=== PATIENT | female | born 1960 | race American Indian/Alaskan Native ===

== ENCOUNTER 2017-06-20 14:06 | Outpatient (CLI) | payer OTHER ==
--- NOTE | 2017-06-20 15:31 | Mammography Report ---
RIGHT DIGITAL DIAGNOSTIC MAMMOGRAM : 06/20/17 14:06:00 CLINICAL: Recall for asymmetries. COMPARISON:05/17/17 screening FINDINGS: ML and spot magnification MLO and CC views were performed and are negative. IMPRESSION: No mammographic evidence of malignancy. BI-RADS CATEGORY: 1 -- Negative RECOMMENDATION: Routine mammographic screening in one year. ACR BI-RADS MAMMOGRAPHIC CODES: 0 = Needs additional imaging evaluation; 1 = Negative; 2 = Benign; 3 = Probably benign; 4 = Suspicious; 5 = Malignant; 6 = Known biopsy-proven malignancy COMMENT: 1. Dense breast tissue, i.e., adenosis, fibrocystic changes, etc., may obscure an underlying neoplasm. 2. Approximately 10% of cancers are not detected with mammography. 3. A negative mammography report should not delay biopsy if a clinically suspicious mass is present. COMMENT: Patient follow-up letters are generated via our [employer] application.
== END 2017-06-20 14:07 | disposition home or self-care (01) ==
LOC: SPVWC 14:06
PROVIDERS: ATTEND Specialist
DX: R92.2 Inconclusive mammogram (principal)
CPT/HCPCS: G0206-RT

== ENCOUNTER 2017-09-11 06:21 | Observation (INO) | payer OTHER ==
--- NOTE | 2017-09-09 13:22 | Anesthesia Consultation ---
Anesthesia Consult and Med Hx Date of service: 09/09/17 - Airway Anesthetic Teeth Evaluation: Partials ROM Head & Neck: Adequate Mental/Hyoid Distance: Adequate Mallampati Class: Class I Intubation Access Assessment: Probably Good - Pulmonary Exam CTA: Yes - Cardiac Exam Cardiac Exam: RRR - Pre-Operative Health Status ASA Pre-Surgery Classification: ASA3 Proposed Anesthetic Plan: General - Pulmonary Hx Smoking: Yes (former) - Cardiovascular System Hx Hypertension: Yes (since age 48, may choose to hold the HCTZ) - Central Nervous System Hx Psychiatric Problems: No - Other Systems Hx Alcohol Use: Yes (occas) Hx Cancer: No - Additional Comments Anesthesia Medical History Comments: Discussed the possibility of TAP block for post anesthesia pain control
[2017-09-09 13:24] LABS: Basophils # (Auto) 0.1 K/mm3 (0.0-0.1); Basophils % (Auto) 1.2 % (0.0-1.8); Eosinophils # (Auto) 0.2 K/mm3 (0.0-0.4); Hematocrit 38.7 % (30.3-42.9); Hemoglobin 12.5 gm/dl (10.1-14.3); Lymphocytes # (Auto) 2.1 K/mm3 (1.2-5.4); Lymphocytes % (Auto) 39.5 % (13.4-35.0); Mean Corpuscular HGB Conc 32 % (30-34); Mean Corpuscular Hemoglobin 26 pg (28-32); Mean Corpuscular Volume 81 fl (79-97); Monocytes # (Auto) 0.5 K/mm3 (0.0-0.8); Monocytes % (Auto) 10.1 % (0.0-7.3); Platelet Count 216 K/mm3 (140-440); Red Blood Count 4.77 M/mm3 (3.65-5.03); Red Cell Distribution Width 14.8 % (13.2-15.2)
[2017-09-09 13:44] LABS: BUN/Creatinine Ratio 30; Blood Urea Nitrogen 18 mg/dL (7-17); Calcium 9.2 mg/dL (8.4-10.2); Hemolysis Index 10
[~2017-09-11 06:21] MED LIST: NACL 0.9% 1000 ML 1,000 ML IV SCH
[2017-09-11] MEDS ORDERED: NACL BACTERIOSTATIC INFILTRATI ONE (06:57)
[2017-09-11] MEDS ORDERED: GELFOAM POWDER 1GM MM ONE ×2 (07:30→08:35)
[2017-09-11] MEDS ORDERED: NEOSPORIN GU IR ONE ×2 (07:31→08:35)
[2017-09-11] MEDS ORDERED: THROMBIN (BOVINE) TP ONE ×2 (07:31→08:35)
[2017-09-11] MEDS ORDERED: SUBLIMAZE IV ONE (07:36)
[2017-09-11] MEDS ORDERED: ZEMURON IV ONE (07:37)
[2017-09-11] MEDS ORDERED: DILAUDID ONE (07:37)
[2017-09-11] MEDS ORDERED: XYLOCAINE MPF 2% ONE (07:37)
[2017-09-11] MEDS ORDERED: DIPRIVAN 10 MG/ML IV ONE (07:37)
--- NOTE | 2017-09-11 07:39 | Anesthesia Day of Surgery ---
Anesthesia Day of Surgery - Day of Surgery Patient Examined: Yes Patient H&P Reviewed: Yes Patient is NPO: Yes
[2017-09-11] MEDS ORDERED: MARCAINE 0.5% 60 ML INFILTRATI ONE (07:40)
--- NOTE | 2017-09-11 07:48 | History and Physical Report ---
History of Present Illness Date of examination: 09/11/17 Date of admission: 09/11/2017 Chief complaint: pelvic pressure History of present illness: 57y/o with uterovaginal prolapse. She complains of pelvic pressure and discomfort. She has not experienced urinary incontinence. Pelvic ultrasound was performed with findings of a thickened endometrium. Endometrial biospy was benign. She has elected for definitive surgical management. Past History Past Medical History: hypertension Past Surgical History: other (aspiration of breast cyst) Social history: single - Obstetrical History : 2 Para: 2 Hx # Term Pregnancies: 2 Number of Pregnancies: 0 Spontaneous Abortions: 0 Induced : 0 Number of Living Children: 2 Medications and Allergies Allergies Allergy/AdvReac Type Severity Reaction Status Date / Time peach Allergy Anaphylaxis Verified 09/06/17 16:57 seafood Allergy Unknown Uncoded 09/06/17 16:57 Home Medications Medication Instructions Recorded Confirmed Last Taken Type Aspirin [Lo-Dose Aspirin EC] 81 mg PO DAILY 09/06/17 09/06/17 09/04/17 History Hydrochlorothiazide [HCTZ] 25 mg PO QDAY 09/06/17 09/11/17 09/10/17 History Active Meds: Active Medications Fentanyl (Sublimaze) 100 mcg IV ONCE ONE Stop: 09/11/17 07:37 Hydromorphone HCl (Dilaudid) 0.5 mg IV Q10MIN PRN PRN Reason: Pain , Severe (7-10) Sodium Chloride (Nacl 0.9% 1000 Ml) 1,000 mls @ 42 mls/hr IV DIRECT FATIMAH Meperidine HCl (Demerol) 25 mg IV ONCE PRN PRN Reason: Shivering Midazolam HCl (Versed) 2 mg IV PREOP NR Stop: 09/11/17 23:59 Naloxone HCl (Narcan 0.4 Mg/1 Ml) 0.1 mg IV Q2MIN PRN PRN Reason: Res Rate </= 8 or 02 SAT < 92% Ondansetron HCl (Zofran) 4 mg IV ONCE PRN PRN Reason: Nausea And Vomiting Review of Systems All systems: negative Genitourinary: pelvic pain - Vital Signs Vital signs: Vital Signs Temp Pulse Resp BP 98.2 F 68 18 136/90 09/09/17 12:35 09/09/17 12:35 09/09/17 12:35 09/09/17 12:35 Temp Pulse Resp BP Pulse Ox 98.2 F 68 18 136/90 09/09/17 12:35 09/09/17 12:35 09/09/17 12:35 09/09/17 12:35 - Physical Exam Breasts: Positive: deferred Cardiovascular: Regular rate Lungs: Positive: Clear to auscultation Abdomen: Positive: normal appearance Results Result Diagrams: 09/09/17 12:45 09/09/17 12:45 All other labs normal. Assessment and Plan - Patient Problems (1) Uterovaginal prolapse Current Visit: Yes Status: Acute Plan to address problem: proceed with a robotic hysterectomy/BSO and anterior repair (2) Endometrial thickening on ultra sound Current Visit: Yes Status: Acute
[2017-09-11] MEDS ORDERED: ANCEF/STERILE WATER 2 GM/20 ML IV NR (08:00)
[2017-09-11] MEDS ORDERED: VERSED IV NR (08:00)
[2017-09-11] MEDS ORDERED: DEMEROL IV PRN (08:00)
[2017-09-11] MEDS ORDERED: ZOFRAN IV PRN (08:00)
[2017-09-11] MEDS ORDERED: SUBLIMAZE IV NR (08:00)
[2017-09-11] MEDS ORDERED: NARCAN 0.4 MG/1 ML IV PRN ×2 (08:00→10:27)
[2017-09-11] MEDS ORDERED: NACL 0.9% IR ONE ×2 (08:35)
[2017-09-11] MEDS ORDERED: APRESOLINE ONE (09:24)
[2017-09-11] MEDS ORDERED: ZOFRAN ONE (09:24)
[2017-09-11] MEDS ORDERED: XYLOCAINE 1%/ EPI 1:100,000 INFILTRATI ONE (09:32)
[2017-09-11] MEDS ORDERED: NEOSTIGMINE ONE (09:42)
[2017-09-11] MEDS ORDERED: ROBINUL ONE (09:42)
[2017-09-11] MEDS ORDERED: XYLOCAINE/EPI 1% 1:50,000 (OR) INFILTRATI ONE (09:48)
--- NOTE | 2017-09-11 10:27 | Operative Report ---
Operative Report Operative Report: Date of surgery: 09/11/2017 Preoperative diagnoses: Uterovaginal prolapse; pelvic pain Postoperative diagnoses: Same as above Procedure: Robotic hysterectomy and bilateral salpingo-oophorectomy; lysis of adhesions; anterior repair Surgeon: Merissa Strange M.D. Warehouse Clerk: Adrianne Claudio Anesthesia: Gen. endotracheal anesthesia Estimated blood loss: 75 mL Pathology: Uterus, cervix, bilateral tubes and ovaries, vaginal mucosa Indication: 57-year-old 002 with a history of uterovaginal prolapse. The patient denied any history of urinary incontinence. She also reported a complaint of pelvic pressure and pain. Procedure: The patient was taken to the operating room and given general endotracheal anesthesia without complication. She is prepped and draped in a normal sterile fashion. A bivalve speculum was placed in the patient's vagina and a single- tooth tenaculum placed on the anterior lip of the cervix. The uterus was sounded with the uterine sound. A [employer] uterine manipulator was placed in the bivalve speculum was then removed. Attention was then turned to the patient's abdomen where a 12 millimeter supra umbilical skin incision was then made. A Veress needle was placed and peritoneal entry was verified water-filled syringe. Insufflation of the peritoneal cavity was performed with CO2 gas. The 12 mm trocar was then placed under direct visualization. An additional 8 mm trocar was placed on the patient's left and right lateral side just opposite of the supraumbilical trocar. An additional 5 mm right lateral trocar was then placed as the accessory port. The Robel Roper device was used to close the fascia of the 12 mm incision. General survey of the patient's abdomen and pelvis revealed evidence of multiple omental adhesions to the anterior abdominal wall. The monopolar scissors had to be used in order to lyse the adhesions to improve visualization. The uterus was normal in size with normal tubes and ovaries bilaterally The patient was then placed in steep Trendelenburg. The da Dell robot was then engaged. A fenestrated forcep was placed in arm 2 and a vessel sealer was placed in arm 1. The surgeon then transferred to the surgical console. The infundibulopelvic ligament was then isolated on the right. The vessel sealer was used to coagulate the ligament which was then transected. The tube and ovary were transected from the supply. The round ligament was then coagulated and transected also. The vesicouterine peritoneum was then entered from the patient's right side. The uterine vessels were then coagulated with the vessel sealer. The vessels were then transected . Attention was then turned to the patient's left side where the infundibulopelvic ligament and mesosalpinx were again isolated coagulated and transected. The vesical peritoneum was then entered from the left and joined in the midline. Peritoneum was reflected off of the lower uterine segment. Uterine vessels were then coagulated and then transected. The blood supply to the uterus was adequately contained, a posterior colpotomy was made. The V care ring was visualized. Posterior colpotomy was created with the monopolar scissors. The incision was continued circumferentially until anterior colpotomy was made. The cervix and uterus were amputated from the vaginal cuff. The uterus was then removed along with the tubes and ovaries bilaterally through the vagina and a warm laparotomy sponge was placed and maintain the pneumoperitoneum. The surgeon left the surgical console and went to the foot of the bed. The vaginal mucosa was injected with lidocaine with epinephrine. A weighted speculum was placed in the vagina. The vaginal mucosa was grasped with Allis clamps. A vertical incision was made on the anterior portion of the vaginal mucosa incising the tissue. With sharp dissection and the bladder was reflected off of the vaginal mucosa. Plication sutures were placed in order to decompress the cystocele. The excess vaginal mucosa was removed with the scalpel. The vaginal mucosal was reapproximated in a running lock fashion. The vaginal cuff was then closed in a linear fashion with 0 Vicryl in a running fashion. Irrigation of the pelvis was performed. Gelfoam with thrombin was applied to the incision. The skin was then reapproximated with 4-0 Monocryl. The tissue was sent to pathology which included the cervix, uterus, tubes and ovaries. The patient was then successfully extubated. She was then taken to the recovery room in stable condition. All sponge laps and needle counts were correct x2.
[2017-09-11] MEDS ORDERED: MILK OF MAGNESIA PO PRN (10:28)
[2017-09-11] MEDS ORDERED: PERCOCET 5/325 PO PRN (10:28)
[2017-09-11] MEDS ORDERED: TYLENOL PO PRN (10:28)
[2017-09-11] MEDS ORDERED: MORPHINE PCA 30MG/30ML IV SCH (11:00)
[2017-09-11] MEDS: DILAUDID IV PRN ×2 (11:11→11:34)
[2017-09-11] MEDS ORDERED: MOTRIN PO PRN (12:50)
--- NOTE | 2017-09-11 14:46 | Post Anesthesia Evaluation ---
- Post Anesthesia Evaluation Patient Participated: Yes Airway Patent: Yes Stable Respiratory Function: Yes Nausea/Vomiting: No Temp > 96.8F: Yes Pain Manageable: Yes Adequeate Hydration: Yes Anesthesia Complications: No Block Receding Appropriately: Not Applicable
[2017-09-11] MEDS: D5LR 1,000 ML IV SCH ×2 (15:35→22:29)
[2017-09-11] MEDS: TORADOL IV SCH ×3 (18:50→22:19)
[2017-09-12] MEDS: TORADOL IV SCH ×2 (04:00→10:10)
[2017-09-12 04:21] LABS: Hemoglobin 11.4 gm/dl (10.1-14.3)
[2017-09-12] MEDS: D5LR 1,000 ML IV SCH (05:45)
--- NOTE | 2017-09-12 12:52 | Progress Note ---
Assessment and Plan - Patient Problems (1) Uterovaginal prolapse Current Visit: Yes Status: Acute Plan to address problem: Patient doing well Discharge home (2) Endometrial thickening on ultra sound Current Visit: Yes Status: Acute Subjective - Subjective Date of service: 09/12/17 Interval history: Patient is without any significant complaints. She reports being able to void after removal of Parnell. She is tolerating a regular diet. Patient reports: appetite normal, voiding normally, pain well controlled Objective - Vital Signs Latest vital signs: Vital Signs Temp Pulse Resp BP Pulse Ox 09/12/17 08:49 98.8 F 88 20 109/68 96 09/12/17 08:20 16 09/12/17 07:30 16 09/12/17 05:43 18 09/12/17 04:00 98.2 F 87 18 120/77 09/12/17 02:19 18 09/12/17 00:22 20 09/12/17 00:00 98.8 F 87 18 119/69 09/11/17 22:32 18 09/11/17 22:19 18 09/11/17 20:05 98.2 F 91 H 18 135/83 09/11/17 19:15 18 Intake and Output 09/11/17 09/12/17 09/12/17 22:59 06:59 14:59 Intake Total 1102.5 1028.333 120 Output Total 600 400 400 Balance 502.5 628.333 -280 Intake: IV 862.5 908.333 D5lr 1,000 ml @ 125 mls/ 862.5 908.333 hr IV DIRECT FATIMAH Rx#: [id number] Oral 240 120 120 Output: Urine 600 400 400 Indwelling Catheter 600 400 Void 400 Other: Total, Intake Amount 240 120 120 Total, Output Amount 600 400 200 Voiding Method Indwelling Catheter Toilet - Exam Breasts: Present: deferred Cardiovascular: Present: Regular rate Lungs: Present: Clear to auscultation Abdomen: Present: normal appearance Incision: Present: normal
--- NOTE | 2017-09-12 12:54 | Discharge Summary ---
Providers - Providers Date of Admission: 09/11/17 10:28 Date of discharge: 09/12/17 Attending physician: TAMIA RUELAS Primary care physician: LAURA CLAYTON Hospitalization Reason for admission: other (uterovaginal prolapse) Procedure: other (robotic hysterectomy and bilateral salpingo-oophorectomy and anterior repair) Incision: normal Discharge diagnosis: other (uterovaginal prolapse) Pertinent studies: The patient was admitted the day of surgery and underwent a robotic hysterectomy bilateral salpingo-oophorectomy and anterior repair. Please see operative note for details of surgery. The patient's postoperative course was uneventful. Condition at discharge: Good Disposition: DC- TO HOME OR SELFCARE - Discharge Diagnoses (1) Uterovaginal prolapse Status: Acute (2) Endometrial thickening on ultra sound Status: Acute Plan - Discharge Medications Prescriptions: Docusate Sodium [Colace] 100 mg PO BID PRN #60 capsule PRN Reason: Constipation Ibuprofen [Motrin] 800 mg PO Q8HR PRN #60 tablet PRN Reason: Pain Oxycodone HCl/Acetaminophen [Percocet 7.5/325 mg] 1 each PO Q6HR PRN #45 tablet PRN Reason: Pain - Provider Discharge Summary Activity: no sex for 6 weeks, no heavy lifting 4 weeks, no strenuous exercise Diet: routine Instructions: routine Additional instructions: [] Smoking cessation referral if applicable(refer to patient education folder for contact #) [] Refer to [facility]'s [facility] Booklet Call your doctor immediately for: * Fever > 100.5 * Heavy vaginal bleeding ( >1 pad per hour) * Severe persistent headache * Shortness of breath * Reddened, hot, painful area to leg or breast * Drainage or odor from incision. * Keep incision clean and dry at all times and follow doctor's instructions regarding bathing/showering Schedule follow-up in 4 weeks - Follow up plan
[2017-09-12 13:41] VITALS: BP 112/70
== END 2017-09-12 14:30 | disposition home or self-care (01) ==
LOC: OR 06:21 → OB 10:28
PROVIDERS: ADMIT Obstetrics & Gynecology; ATTEND Obstetrics & Gynecology
DX: N81.4 Uterovaginal prolapse, unspecified (principal); R93.8 Abnormal findings on diagnostic imaging of other specified body structures; I10 Essential (primary) hypertension; Z87.891 Personal history of nicotine dependence
CPT/HCPCS: 36415; 57240; 58552; 64450; 80048; 81025; 85014; 85018; 85025; 86850; 86900; 86901; 88302; 88305; 96374; 96375; 96376; A4217; A4649; G0378; J0360; J0690; J1170; J1885; J2250; J2270; J2405; J2704; J2710; J7030; J7121; S2900; 88307

== ENCOUNTER 2019-08-10 15:47 | Outpatient (CLI) | payer OTHER ==
--- NOTE | 2019-08-11 08:22 | Mammography Report ---
BILATERAL DIGITAL SCREENING MAMMOGRAM WITH CAD INDICATION: Routine screening mammography. TECHNIQUE: Digital bilateral 2D mammography was obtained in the craniocaudal and mediolateral obliq ue projections. This examination was interpreted with the benefit of Computer-Aided Detection analysi s. COMPARISON: 08/08/2018, 05/17/2017. FINDINGS: Breast Density: There are scattered areas of fibroglandular density. There is a focal asymmetry in the left medial breast at middle depth. IMPRESSION: Focal asymmetry within the left medial breast for which additional mammographic views and possible simon bsequent targeted ultrasound is recommended. BI-RADS Category 0: Incomplete. Needs additional imaging evaluation and/or prior mammograms for josy rison. A "normal" or negative report should not discourage follow up or biopsy of a clinically significant f inding. A written summary of these findings will be mailed to the patient. The patient will be entered into a mammography reporting system which will generate a reminder letter for the patient's next appointmen t at the appropriate interval. The [employer] recommends yearly mammograms starting at age 40 and continuing as l ernst as a woman is in good health. Breast MRI is recommended for women with an approximate 20-25% or greater lifetime risk of breast cancer, including women with a strong family history of breast or ova danielle cancer or who have been treated for Hodgkin's disease. Signer Name: Brooks Marshall MD Signed: 08/11/2019 8:18 AM Workstation Name: [id number]
== END 2019-08-10 15:48 | disposition home or self-care (01) ==
LOC: SPVWC 15:47
PROVIDERS: ATTEND Family Medicine
DX: Z12.31 Encounter for screening mammogram for malignant neoplasm of breast (principal); N64.89 Other specified disorders of breast
CPT/HCPCS: 77067

== ENCOUNTER 2019-08-27 14:09 | Outpatient (CLI) | payer OTHER ==
--- NOTE | 2019-08-27 16:40 | Mammography Report ---
LEFT DIGITAL DIAGNOSTIC MAMMOGRAM WITH CAD 08/27/2019 LEFT LIMITED BREAST ULTRASOUND INDICATION: Recall to evaluate a mammographic asymmetry. ABN MAMMO TECHNIQUE: Digital left mammographic imaging was performed. Spot compression views were obtained. Th is examination was interpreted with the benefit of Computer-Aided Detection (CAD) analysis. COMPARISON: 08/10/2019 FINDINGS: Breast Density: The breasts are heterogeneously dense, which may obscure small masses. MAMMOGRAPHIC FINDINGS: Lateral and spot compression MLO views are negative. Rolled CC views are negat mary. An inner asymmetry persists on a repeat CC view and there is incomplete effacement with spot com pression. ULTRASOUND FINDINGS: Targeted ultrasound evaluation was performed of the area of interest. Ultrasou nd of the inner left breast was performed and demonstrates normal structures with no mass cyst or sha dowing. IMPRESSION: A probably benign left inner asymmetry on the CC view with negative lateral and MLO views and a negative ultrasound. Recommend 6 month follow-up mammogram and ultrasound if needed. Follow up recommendation: Short term follow up in 6 months. BI-RADS Category 3: Probably Benign. Followup in 6 months. A "normal" or negative report should not discourage follow up or biopsy of a clinically significant f inding. A written summary of these findings will be mailed to the patient. The patient will be entered into a mammography reporting system which will generate a reminder letter for the patient's next appointmen t at the appropriate interval. According to the [employer], yearly mammograms are recommended starting at age 40 and continuing as long as a woman is in good health. Breast MRI is recommended for women with an yvonne roximately 20-25% or greater lifetime risk of breast cancer, including women with a strong family his tory of breast or ovarian cancer and women who have been treated for Hodgkin's disease. Signer Name: Mark Thrasher MD Signed: 08/27/2019 4:35 PM Workstation Name: [id number]
== END 2019-08-27 14:10 | disposition home or self-care (01) ==
LOC: MAMMO 14:09
PROVIDERS: ATTEND Family Medicine
DX: R92.8 Other abnormal and inconclusive findings on diagnostic imaging of breast (principal)

== ENCOUNTER 2020-12-15 22:21 | Emergency (ER) | payer OTHER ==
--- NOTE | 2020-12-16 00:21 | Emergency Department Report ---
- General Chief complaint: Skin Rash Stated complaint: BITES ON THE BACK OF LEGS Time Seen by Provider: 12/16/20 00:16 Source: patient Mode of arrival: Ambulatory Limitations: No Limitations - History of Present Illness Initial comments: 60-year-old female with a past medical history of hypertension presents to the ER today with complaint of insect bites to her posterior thighs bilaterally. Patient states that she got bit by insects during a cookout 3 days ago. She is not sure exactly what bit her but now she has swollen, red, pruritic, sore areas to her posterior thigh that to her seems to be getting worse. She has not tried any Benadryl, Claritin or Zyrtec. He has not taken anything for pain. She reports no shortness of breath, wheezing, cough, tongue or facial or throat swelling or any other symptoms at this time. MD complaint: rash, insect bite/sting -: Sudden, days(s) (3) Location: LLE, RLE Severity: mild - Related Data Home Medications Medication Instructions Recorded Confirmed Last Taken Aspirin [Lo-Dose Aspirin EC] 81 mg PO DAILY 09/06/17 10/07/19 10/05/19 Previous Rx's Medication Instructions Recorded Last Taken Type Famotidine [Pepcid] 20 mg PO BID #20 tablet 10/11/19 Unknown Rx Hydroxychloroquine [Plaquenil] 200 mg PO BID #8 tablet 10/11/19 Unknown Rx Hydroxychloroquine [Plaquenil] 400 mg PO BID #2 tablet 10/11/19 Unknown Rx Cetirizine HCl [ZyrTEC 10mg cap] 10 mg PO DAILY #15 capsule 12/16/20 Unknown Rx Triamcinolone 0.1% [Kenalog 0.1% 1 applic TP TID 7 Days #1 tube 12/16/20 Unknown Rx CREAM] cephALEXin [Keflex] 500 mg PO Q8HR #21 cap 12/16/20 Unknown Rx Allergies Allergy/AdvReac Type Severity Reaction Status Date / Time peach Allergy Anaphylaxis Verified 09/06/17 16:57 seafood Allergy Unknown Uncoded 09/06/17 16:57 Abscess Boil HPI - HPI Chief Complaint: Skin Rash Stated Complaint: BITES ON THE BACK OF LEGS Time Seen by Provider: 12/16/20 00:16 Home Medications: Home Medications Medication Instructions Recorded Confirmed Last Taken Aspirin [Lo-Dose Aspirin EC] 81 mg PO DAILY 09/06/17 10/07/19 10/05/19 Previous Rx's Medication Instructions Recorded Last Taken Type Famotidine [Pepcid] 20 mg PO BID #20 tablet 10/11/19 Unknown Rx Hydroxychloroquine [Plaquenil] 200 mg PO BID #8 tablet 10/11/19 Unknown Rx Hydroxychloroquine [Plaquenil] 400 mg PO BID #2 tablet 10/11/19 Unknown Rx Cetirizine HCl [ZyrTEC 10mg cap] 10 mg PO DAILY #15 capsule 12/16/20 Unknown Rx Triamcinolone 0.1% [Kenalog 0.1% 1 applic TP TID 7 Days #1 tube 12/16/20 Unknown Rx CREAM] cephALEXin [Keflex] 500 mg PO Q8HR #21 cap 12/16/20 Unknown Rx Allergies/Adverse Reactions: Allergies Allergy/AdvReac Type Severity Reaction Status Date / Time peach Allergy Anaphylaxis Verified 09/06/17 16:57 seafood Allergy Unknown Uncoded 09/06/17 16:57 ED Review of Systems ROS: Stated complaint: BITES ON THE BACK OF LEGS Other details as noted in HPI Comment: All other systems reviewed and negative Constitutional: denies: chills, diaphoresis, fever, malaise, weakness Eyes: denies: eye pain, eye discharge, vision change ENT: denies: ear pain, throat pain, dental pain, hearing loss, epistaxis, congestion Respiratory: denies: cough, orthopnea, shortness of breath, SOB with exertion, SOB at rest, wheezing Cardiovascular: denies: chest pain, palpitations, dyspnea on exertion, edema, syncope, paroxysmal nocturnal dyspnea Gastrointestinal: denies: abdominal pain, nausea, vomiting, diarrhea, constipation, hematemesis, melena, hematochezia Genitourinary: denies: urgency, dysuria, frequency, hematuria, discharge, abnormal menses, dyspareunia Musculoskeletal: denies: back pain, joint swelling, arthralgia, myalgia Skin: rash, pruritus. denies: change in color, change in hair/nails Neurological: denies: headache, weakness, numbness, paresthesias, confusion, abnormal gait, vertigo Psychiatric: denies: anxiety, depression, auditory hallucinations, visual hallucinations, homicidal thoughts Hematological/Lymphatic: denies: easy bleeding, easy bruising, swollen glands ED Past Medical Hx - Past Medical History Previous Medical History?: Yes Hx Hypertension: Yes (since age 48, may choose to hold the HCTZ) Hx Congestive Heart Failure: No Hx Diabetes: No Hx Asthma: No Hx COPD: No - Surgical History Past Surgical History?: Yes Additional Surgical History: Hysterectomy, - Social History Smoking Status: Never Smoker Substance Use Type: None - Medications Home Medications: Home Medications Medication Instructions Recorded Confirmed Last Taken Type Aspirin [Lo-Dose Aspirin EC] 81 mg PO DAILY 09/06/17 10/07/19 10/05/19 History Famotidine [Pepcid] 20 mg PO BID #20 tablet 10/11/19 Unknown Rx Hydroxychloroquine [Plaquenil] 200 mg PO BID #8 tablet 10/11/19 Unknown Rx Hydroxychloroquine [Plaquenil] 400 mg PO BID #2 tablet 10/11/19 Unknown Rx Cetirizine HCl [ZyrTEC 10mg cap] 10 mg PO DAILY #15 capsule 12/16/20 Unknown Rx Triamcinolone 0.1% [Kenalog 0.1% 1 applic TP TID 7 Days #1 tube 12/16/20 Unknown Rx CREAM] cephALEXin [Keflex] 500 mg PO Q8HR #21 cap 12/16/20 Unknown Rx ED Physical Exam - General Limitations: No Limitations General appearance: alert, in no apparent distress - Head Head exam: Present: atraumatic, normocephalic, normal inspection - Eye Eye exam: Present: normal appearance, PERRL, EOMI Pupils: Present: normal accommodation - ENT ENT exam: Present: normal exam, mucous membranes moist - Neck Neck exam: Present: normal inspection, full ROM - Respiratory Respiratory exam: Present: normal lung sounds bilaterally. Absent: respiratory distress - Cardiovascular Cardiovascular Exam: Present: regular rate - Neurological Exam Neurological exam: Present: alert, oriented X3, CN II-XII intact, normal gait - Skin Skin exam: Present: rash ( few erythematous, maculopapular, slightly urticarial areas of varying sizes noted to posterior thigh, left slightly worse than the right. Mild tenderness to palpation. Very mild warmth. No streaking redness.) ED Course Vital Signs 12/15/20 23:19 Temperature 98.2 F Pulse Rate 67 Respiratory 16 Rate Blood Pressure 159/90 [Right] O2 Sat by Pulse 100 Oximetry ED Medical Decision Making - Medical Decision Making Suspect that patient has localized reaction secondary to insect bite to her posterior thigh areas. She will be given prescription for triamcinolone cream but will start on oral antibiotics to cover for any possible secondary bacterial infection. Discussed suspected diagnosis and treatment plan with patient. She is not toxic, she is not ill-appearing, she is not in acute distress. Her vital signs are stable. Patient expressed understanding of instructions and agree with plan. Patient stable at time of discharge. Critical care attestation.: If time is entered above; I have spent that time in minutes in the direct care of this critically ill patient, excluding procedure time. ED Disposition Clinical Impression: Insect bite of multiple sites of lower extremity with local reaction Disposition: DC- TO HOME OR SELFCARE Is pt being admited?: No Does the pt Need Aspirin: No Condition: Stable Instructions: Insect Bite, Adult Additional Instructions: Use the triamcinolone ointment as prescribed. Take the Zyrtec as prescribed to help with itching. Take the Keflex as prescribed to cover for possible underlying bacterial infection. Try not to use your fingernails to scratch, instead just to rub the area so he can apply ice to help with itching. Recommen d follow-up with your primary care doctor. Return to the ER if your symptoms changes or worsens in any way. Prescriptions: cephALEXin [Keflex] 500 mg PO Q8HR #21 cap Triamcinolone 0.1% [Kenalog 0.1% CREAM] 1 applic TP TID 7 Days #1 tube Cetirizine HCl [ZyrTEC 10mg cap] 10 mg PO DAILY #15 capsule Referrals: NOAH PONCE MD [Staff Physician] - 3-5 Days Time of Disposition: 00:24
== END 2020-12-16 00:30 | disposition home or self-care (01) ==
LOC: ED 22:21
CPT/HCPCS: 99281